=== PATIENT | male | born 1995 | race Two or more races ===

== ENCOUNTER 2023-12-10 09:21 | Emergency (ER) | payer OTHER ==
[~2023-12-10] VITALS: Ht 172.7 cm; Wt 86.2 kg
[2023-12-10] MEDS ORDERED: LIDOCAINE HCL 1% 20 ML VIAL ONE (10:18)
[2023-12-10] MEDS ORDERED: TDAP DIPH,PERTUSS,TET VAC/PF 0.5 ML DISP.SYRIN IM ONE (10:19)
[2023-12-10] MEDS: LIDOCAINE HCL 1% 20 ML VIAL TP ONE (10:23)
[2023-12-10] MEDS: TDAP DIPH,PERTUSS,TET VAC/PF 0.5 ML DISP.SYRIN IM ONE (10:23)
[2023-12-10] MEDS ORDERED: HYDR-3972 PO ×2 (11:18→17:15)
[2023-12-10] MEDS ORDERED: CEPH500C2 PO (11:18)
[2023-12-10] MEDS ORDERED: NEOMY/BACITRA/POLYMYXIN B OINT UD PACKET TP ONE (11:21)
[2023-12-10] MEDS ORDERED: CEphaleXIN 500 MG CAPSULE ONE (11:21)
[2023-12-10] MEDS: CEphaleXIN 500 MG CAPSULE PO ONE (11:22)
[2023-12-10] MEDS: NEOMY/BACITRA/POLYMYXIN B OINT UD PACKET TP ONE (11:22)
[2023-12-10 11:31] VITALS: BP 129/81; O2SAT 99
== END 2023-12-10 11:39 | disposition home or self-care (01) ==
LOC: ER 09:21
DX: S61.217A Laceration without foreign body of left little finger without damage to nail, initial encounter (principal); Z79.899 Other long term (current) drug therapy; W26.0XXA Contact with knife, initial encounter; Y93.89 Activity, other specified; Y92.89 Other specified places as the place of occurrence of the external cause; Y99.8 Other external cause status
CPT/HCPCS: 12001; 90471; 90715; 99283; J3490; A4606; A4663